=== PATIENT | female | born 1950 | race Caucasian/White ===

== ENCOUNTER 2024-08-14 06:40 | Emergency (ER) | payer MEDICARE, OTHER ==
[2024-08-14] MEDS: Lidocaine 4% 1 each Patch TOP ONE (07:49)
[2024-08-14] MEDS: Dexamethasone 4 MG Tab PO ONE (07:51)
[2024-08-14] MEDS: Acetaminophen 500 MG Tab PO ONE (07:52)
[2024-08-14] MEDS: Orphenadrine 60 MG/2 ML Inj IM ONE (07:52)
[2024-08-14] MEDS ORDERED: methylPREDNISolone Sodium Succinate 125 MG/2 ML SDV IVPUSH ONE (08:18)
[2024-08-14] MEDS ORDERED: tiZANidine 4 MG Tab PO ONE (08:18)
== END 2024-08-14 08:57 | disposition home or self-care (01) ==
LOC: MW.ED 06:40
DX: M62.830 Muscle spasm of back (principal); M54.50 Low back pain, unspecified; J45.909 Unspecified asthma, uncomplicated; E66.9 Obesity, unspecified; Z68.31 Body mass index [BMI] 31.0-31.9, adult; Z91.048 Other nonmedicinal substance allergy status; Z79.899 Other long term (current) drug therapy
CPT/HCPCS: 96372; 99283; A9270; J2360; J8540